=== PATIENT | female | born 1950 | race Caucasian/White ===

== ENCOUNTER 2023-06-20 08:02 | Inpatient (IN) ==
[2023-06-20] MEDS ORDERED: IOPAMIDOL 100 ML BOTTLE IV ONE (08:03)
[2023-06-20 08:30] LABS: POC Calcium, Ionized 1.03 (1.16-1.32); POC Creatinine 0.6 (0.6-1.2); POC Potassium 3.2 (3.3-5.1)
[2023-06-20 08:31] LABS: POC Pro Time 12.3 (11.9-14.5)
[2023-06-20 09:11] LABS: Basophils # (Auto) 0.04 K/mcL (0.00-0.30); Basophils % (Auto) 0.5 % (0.0-2.0); Eosinophils # (Auto) 0.12 K/mcL (0.00-0.70); Eosinophils % (Auto) 1.6 % (0.0-7.0); Hemoglobin 16.5 g/dL (11.2-15.7); Lymphocytes # (Auto) 2.68 K/mcL (1.50-4.80); Lymphocytes % (Auto) 36.3 % (15.5-49.0); Mean Cell Volume 93.2 fL (80.0-100.0); Mean Corpuscular HGB Conc 34.4 g/dL (31.0-36.0); Mean Platelet Volume 9.9 fL (8.8-12.5); Monocytes # (Auto) 0.48 K/mcL (0.10-0.90); Monocytes % (Auto) 6.5 % (1.0-12.0); Neutrophils % (Auto) 54.7 % (38.0-78.0); Platelet Count 222 K/mcL (140-440); RBC 5.15 M/mcL (3.59-5.38); Red Cell Distribution Width 13.1 % (11.5-14.5); WBC 7.4 K/mcL (4.5-11.0)
[2023-06-20 09:32] LABS: ALT/SGPT 15 U/L (<40); AST/SGOT 26 U/L (<32); Albumin 3.8 gm/dL (3.2-5.2); Alkaline Phosphatase 97 U/L (39-117); Bilirubin,Direct < 0.2 mg/dL (0-0.3); Bilirubin,Total 0.5 mg/dL (0.1-1.0); Globulin 3.2 gm/dL (2.2-3.7)
[2023-06-20] MEDS ORDERED: CLOPIDOGREL 75 MG TABLET PO ONE (09:57)
[2023-06-20] MEDS ORDERED: ASPIRIN 81 MG TAB.CHEW CHEWED ONE (09:57)
[2023-06-20] MEDS ORDERED: ATORVASTATIN 40 MG TABLET PO ONE (09:57)
[2023-06-20] MEDS ORDERED: POTASSIUM CHLORIDE 20 MEQ TABLET PO ONE (10:15)
[2023-06-20] MEDS ORDERED: ONDANSETRON 4 MG/2 ML VIAL IV PRN (13:15)
[2023-06-20] MEDS ORDERED: SENNOSIDES 1 TABLET PO PRN (13:15)
[2023-06-20] MEDS ORDERED: ACETAMINOPHEN 325 MG TABLET PO PRN (13:15)
[2023-06-20] MEDS ORDERED: LABETALOL 5 MG/ML ML IV PRN (13:15)
[2023-06-20] MEDS ORDERED: LACTULOSE 20 GM/30 ML ORAL.SOL PO PRN (13:15)
[2023-06-20] MEDS ORDERED: 0.9 % SODIUM CHLORIDE 1,000 ML IV SCH (13:15)
[2023-06-20] MEDS ORDERED: hydrALAZINE 20 MG/ML VIAL IV PRN (13:15)
[2023-06-20] MEDS: 0.9 % SODIUM CHLORIDE 10 ML SYRINGE IV SCH ×2 (14:38→20:50)
[2023-06-20] MEDS: OMEPRAZOLE 20 MG CAPSULE PO SCH (17:23)
[2023-06-20 17:58] LABS: Appearance,Urine CLEAR (Clear); Bilirubin,Urine Negative (Negative); Color,Urine AMBER; Culture Indicated,Urine No; Glucose,Urine (UA) Negative (Negative); Ketones,Urine Negative (Negative); Leukocyte Esterase,Urine Negative /uL (Negative); Nitrate,Urine Negative (Negative); Protein,Urine Negative (Negative); Specific Gravity,Urine > 1.060 (1.000-1.035); Urine Blood Negative (Negative); Urobilinogen,Urine Negative
[2023-06-20] MEDS: DOCUSATE SODIUM 100 MG CAPSULE PO SCH (20:34)
[2023-06-20] MEDS: MIRTAZAPINE 15 MG TABLET PO SCH (20:50)
[2023-06-21] MEDS: 0.9 % SODIUM CHLORIDE 10 ML SYRINGE IV SCH ×3 (05:08→20:05)
[2023-06-21 06:25] LABS: Basophils # (Auto) 0.05 K/mcL (0.00-0.30); Basophils % (Auto) 0.8 % (0.0-2.0); Eosinophils # (Auto) 0.12 K/mcL (0.00-0.70); Hematocrit 46.7 % (34.1-44.9); Hemoglobin 15.3 g/dL (11.2-15.7); Lymphocytes # (Auto) 2.18 K/mcL (1.50-4.80); Lymphocytes % (Auto) 36.8 % (15.5-49.0); Mean Cell Volume 96.9 fL (80.0-100.0); Mean Corpuscular HGB Conc 32.8 g/dL (31.0-36.0); Monocytes # (Auto) 0.52 K/mcL (0.10-0.90); Monocytes % (Auto) 8.8 % (1.0-12.0); Neutrophils % (Auto) 51.3 % (38.0-78.0); Platelet Count 213 K/mcL (140-440); RBC 4.82 M/mcL (3.59-5.38); Red Cell Distribution Width 13.3 % (11.5-14.5); WBC 5.9 K/mcL (4.5-11.0)
[2023-06-21 06:44] LABS: Albumin 3.4 gm/dL (3.2-5.2); Blood Urea Nitrogen 12 mg/dL (8-23); Calcium 8.5 mg/dL (8.6-10.4); Carbon Dioxide 28 mmol/L (22-30); Chloride 101 mmol/L (96-108); Glomerular Filtration Rate 91; Glucose 125 mg/dL (70-105); HDL Cholesterol 64 mg/dL (>40); LDL Cholesterol,Calculated 141 mg/dL (<100); Non-HDL Cholesterol 174 mg/dL (<130); Phosphorous 3.8 mg/dL (2.5-4.5); Triglycerides 170 mg/dL (<150)
[2023-06-21 06:52] LABS: Estimated Average Glucose(eAG) 108 mg/dL; Hemoglobin A1C 5.4 % Hgb (4.0-6.0)
[2023-06-21] MEDS: ENOXAPARIN 40 MG/0.4 ML SYRINGE SQ SCH (08:40)
[2023-06-21] MEDS: ASPIRIN 81 MG TAB.CHEW CHEWED SCH (08:41)
[2023-06-21] MEDS: ATORVASTATIN 40 MG TABLET PO SCH (08:41)
[2023-06-21] MEDS: CLOPIDOGREL 75 MG TABLET PO SCH (08:42)
[2023-06-21] MEDS: PARoxetine 20 MG TABLET PO SCH (08:42)
[2023-06-21] MEDS: OMEPRAZOLE 20 MG CAPSULE PO SCH ×2 (08:42→18:27)
[2023-06-21] MEDS: DOCUSATE SODIUM 100 MG CAPSULE PO SCH ×2 (08:43→19:58)
[2023-06-21] MEDS: MIRTAZAPINE 15 MG TABLET PO SCH (20:05)
[2023-06-21] MEDS ORDERED: LISINOPRIL 5 MG TABLET PO SCH (21:00)
[2023-06-22] MEDS: 0.9 % SODIUM CHLORIDE 10 ML SYRINGE IV SCH (05:20)
[2023-06-22 06:23] LABS: Basophils # (Auto) 0.05 K/mcL (0.00-0.30); Basophils % (Auto) 0.8 % (0.0-2.0); Eosinophils # (Auto) 0.22 K/mcL (0.00-0.70); Eosinophils % (Auto) 3.3 % (0.0-7.0); Hematocrit 44.5 % (34.1-44.9); Hemoglobin 14.5 g/dL (11.2-15.7); Lymphocytes % (Auto) 31.9 % (15.5-49.0); Mean Cell Volume 96.7 fL (80.0-100.0); Mean Corpuscular HGB Conc 32.6 g/dL (31.0-36.0); Mean Platelet Volume 9.8 fL (8.8-12.5); Monocytes # (Auto) 0.56 K/mcL (0.10-0.90); Monocytes % (Auto) 8.5 % (1.0-12.0); Neutrophils % (Auto) 55.2 % (38.0-78.0); Platelet Count 214 K/mcL (140-440); Red Cell Distribution Width 13.2 % (11.5-14.5); WBC 6.6 K/mcL (4.5-11.0)
[2023-06-22 06:43] LABS: Albumin 3.2 gm/dL (3.2-5.2); Blood Urea Nitrogen 13 mg/dL (8-23); Calcium 8.5 mg/dL (8.6-10.4); Carbon Dioxide 29 mmol/L (22-30); Chloride 103 mmol/L (96-108); Glomerular Filtration Rate 91; Glucose 120 mg/dL (70-105); Phosphorous 4.6 mg/dL (2.5-4.5)
[2023-06-22] MEDS: OMEPRAZOLE 20 MG CAPSULE PO SCH (07:23)
[2023-06-22] MEDS: ATORVASTATIN 40 MG TABLET PO SCH (09:19)
[2023-06-22] MEDS: CLOPIDOGREL 75 MG TABLET PO SCH (09:19)
[2023-06-22] MEDS: ASPIRIN 81 MG TAB.CHEW CHEWED SCH (09:19)
[2023-06-22] MEDS: DOCUSATE SODIUM 100 MG CAPSULE PO SCH (09:20)
[2023-06-22] MEDS: ENOXAPARIN 40 MG/0.4 ML SYRINGE SQ SCH (09:20)
[2023-06-22] MEDS: PARoxetine 20 MG TABLET PO SCH (09:20)
[2023-06-22] MEDS ORDERED: LISINOPRIL 5 MG TABLET PO ONE (10:07)
== END 2023-06-22 13:00 | disposition home health service (06) | DRG 65 ==
LOC: ED 08:02 → ICU 13:04
PROVIDERS: ADMIT Internal Medicine; ATTEND Internal Medicine